=== PATIENT | female | born 1970 | race Caucasian/White ===

== ENCOUNTER 2016-06-26 15:17 | Outpatient (CLI) | payer OTHER | END 2016-06-26 15:18 | disposition home or self-care (01) | DX: K80.20 Calculus of gallbladder without cholecystitis without obstruction (principal) ==

== ENCOUNTER 2017-04-02 07:54 | Outpatient (CLI) | payer OTHER ==
--- NOTE | 2017-04-04 06:41 | Mammography Report ---
EXAM: DIGITAL BILATERAL SCREENING MAMMOGRAM 04/02/2017 CLINICAL INDICATION: A 47-year-old for screening. COMPARISON: 12/2014, 10/2013, 11/2011, 04/2010. TECHNIQUE: Routine CC and MLO projections were obtained of the breasts. FINDINGS: Parenchymal tissue within both breasts is heterogeneously dense, which may lower the sensitivity of mammography; however, there are no dominant masses, suspicious microcalcifications, or secondary signs of malignancy. In comparison to the previous studies, there are no significant changes. ASSESSMENT: NO MAMMOGRAPHIC EVIDENCE OF MALIGNANCY. NO SIGNIFICANT INTERVAL CHANGES. RECOMMENDATION: Screening mammography is recommended annually. BIRADS category 1 - negative. STANDARD QUALIFYING STATEMENTS 1. This examination was reviewed with the aid of Computed-Aided Detection (CAD). 2. A negative or benign imaging report should not delay biopsy if clinically suspicious findings are present. Consider surgical consultation if warranted. More than 5% of cancers are not identified by imaging. 3. Dense breasts may obscure an underlying neoplasm. Dictating Provider: Isacc Flores MD TD: 04/03/2017 21:13 MTDD
== END 2017-04-02 07:55 | disposition home or self-care (01) ==
LOC: DI 07:54
PROVIDERS: ATTEND Family Medicine
DX: Z12.31 Encounter for screening mammogram for malignant neoplasm of breast (principal)
CPT/HCPCS: 77067

== ENCOUNTER 2017-06-20 08:00 | Outpatient (CLI) | payer OTHER ==
[2017-06-20 13:11] LABS: BASOPHILS # (AUTO) 0.1 10^3/uL (0.0-0.1); BASOPHILS % (AUTO) 0.9 %; EOSINOPHILS # (AUTO) 0.2 10^3/uL (0.0-0.7); LYMPHOCYTES # (AUTO) 1.5 10^3/uL (1.5-3.5); LYMPHOCYTES % (AUTO) 23.6 %; MEAN CORPUSCULAR HEMOGLOBIN 29.3 pg (27.0-31.0); MEAN CORPUSCULAR HGB CONC 33.3 g/dL (32.0-36.0); MEAN CORPUSCULAR VOLUME 87.9 fL (81.0-99.0); MEAN PLATELET VOLUME 8.3 fL (7.9-10.8); MONOCYTES # (AUTO) 0.6 10^3/uL (0.0-1.0); MONOCYTES % (AUTO) 9.3 %; NEUTROPHILS # (AUTO) 3.9 10^3/uL (1.5-6.6); NEUTROPHILS % (AUTO) 62.2 %; PLT - PLATELET COUNT 270 10^3/uL (130-450); RED BLOOD COUNT 4.43 10^6/uL (4.20-5.40); WHITE BLOOD COUNT 6.2 x10^3/uL (4.8-10.8)
[2017-06-20 13:38] LABS: HB2 TOTAL 13.7 g/dL; HEMOGLOBIN A1C 0.44 g/dL; HEMOGLOBIN A1C % 5.1 % (4.6-6.2)
[2017-06-20 14:01] LABS: ALBUMIN 4.3 g/dL (3.2-5.5); ALBUMIN/GLOBULIN RATIO 1.8 (1.0-2.2); ALKALINE PHOSPHATASE 50 IU/L (42-121); ALT ALANINE AMINOTRANSFERASE 18 IU/L (10-60); AST ASPARTATE AMINOTRANSFERASE 19 IU/L (10-42); BILIRUBIN,TOTAL 0.6 mg/dL (0.2-1.0); BUN - BLOOD UREA NITROGEN 9 mg/dL (6-20); CALCIUM 9.1 mg/dL (8.5-10.3); CARBON DIOXIDE - CO2 22 mmol/L (21-32); CHLORIDE 106 mmol/L (101-111); CHOL/HDL RATIO 3.4 (<4.4); CHOLESTEROL 195 mg/dL; GFR - MDRD 59 (>89); GLUCOSE 89 mg/dL (70-100); HDL CHOLESTEROL 57 mg/dL; LDL CHOLESTEROL,CALCULATED 116 mg/dL; SODIUM 137 mmol/L (135-145); TOTAL PROTEIN 6.7 g/dL (6.7-8.2); VLDL CHOLESTEROL 22 mg/dL
== END 2017-06-20 08:01 | disposition home or self-care (01) ==
LOC: LAB.WCP 08:00
PROVIDERS: ATTEND Family Medicine
DX: Z00.00 Encounter for general adult medical examination without abnormal findings (principal); E78.5 Hyperlipidemia, unspecified; K76.89 Other specified diseases of liver; Z51.81 Encounter for therapeutic drug level monitoring; Z79.899 Other long term (current) drug therapy
CPT/HCPCS: 36415; 80053; 80061; 83036; 83721; 84443; 85025

== ENCOUNTER 2018-06-23 16:04 | Outpatient (CLI) | payer OTHER ==
--- NOTE | 2018-06-24 11:01 | Mammography Report ---
Reason: SCREENING MAMMO Procedure Date: 06/23/2018 Accession Number: [id number] / [id number] Procedure: MGN - Screening Mammo Dig Bilat CPT Code: FULL RESULT: EXAM: Screening Mammo Dig Bilat DATE: 06/23/2018 4:31 PM CLINICAL HISTORY: Routine screening. No reported personal or family history of breast cancer. TECHNIQUE: Bilateral CC and MLO views were obtained. COMPARISON: 04/10/2017 through 12/13/2011 FINDINGS: The breasts demonstrate heterogeneously dense fibroglandular parenchyma bilaterally. Bilateral breasts: There are no suspicious masses, calcifications or areas of distortion. IMPRESSION: Negative examination RECOMMENDATION: Routine annual screening unless otherwise clinically indicated. BI-RADS CATEGORY 1: Negative STANDARD QUALIFYING STATEMENTS: 1. This examination was reviewed with the aid of Computer-Aided Detection (CAD). 2. A negative or benign imaging report should not preclude biopsy if clinically suspicious findings are present. 3. Dense breasts may obscure an underlying neoplasm. 4. This examination was reviewed without the aid of 3D breast imaging (tomosynthesis).
== END 2018-06-23 16:05 | disposition home or self-care (01) ==
LOC: DI.N 16:04
DX: Z12.31 Encounter for screening mammogram for malignant neoplasm of breast (principal)
CPT/HCPCS: 77067

== ENCOUNTER 2018-11-16 08:00 | Outpatient (CLI) | payer OTHER ==
[2018-11-16 12:52] LABS: BASOPHILS % (AUTO) 0.4 %; EOSINOPHILS # (AUTO) 0.1 10^3/uL (0.0-0.7); EOSINOPHILS % (AUTO) 1.4 %; HGB - HEMOGLOBIN 12.3 g/dL (12.0-16.0); LYMPHOCYTES # (AUTO) 1.7 10^3/uL (1.5-3.5); LYMPHOCYTES % (AUTO) 20.2 %; MEAN CORPUSCULAR HEMOGLOBIN 29.8 pg (27.0-31.0); MEAN CORPUSCULAR HGB CONC 31.9 g/dL (32.0-36.0); MEAN CORPUSCULAR VOLUME 93.5 fL (81.0-99.0); MEAN PLATELET VOLUME 10.2 fL (7.9-10.8); MONOCYTES # (AUTO) 0.5 10^3/uL (0.0-1.0); MONOCYTES % (AUTO) 6.5 %; NEUTROPHILS # (AUTO) 5.9 10^3/uL (1.5-6.6); NEUTROPHILS % (AUTO) 71.3 %; PLT - PLATELET COUNT 281 10^3/uL (130-450); RED BLOOD COUNT 4.13 10^6/uL (4.20-5.40); RED CELL DISTRIBUTION WIDTH 12.6 % (12.0-15.0); WHITE BLOOD COUNT 8.3 x10^3/uL (4.8-10.8)
[2018-11-16 13:14] LABS: ALBUMIN 4.3 g/dL (3.2-5.5); ALBUMIN/GLOBULIN RATIO 1.7 (1.0-2.2); ALKALINE PHOSPHATASE 57 IU/L (42-121); ALT ALANINE AMINOTRANSFERASE 17 IU/L (10-60); AST ASPARTATE AMINOTRANSFERASE 21 IU/L (10-42); BILIRUBIN,TOTAL 0.6 mg/dL (0.2-1.0); BUN - BLOOD UREA NITROGEN 12 mg/dL (6-20); CALCIUM 9.3 mg/dL (8.5-10.3); CARBON DIOXIDE - CO2 25 mmol/L (21-32); CHLORIDE 104 mmol/L (101-111); CHOL/HDL RATIO 3.3 (<4.4); CHOLESTEROL 209 mg/dL; CREATININE 0.9 mg/dL (0.4-1.0); GFR - MDRD 67 (>89); GLUCOSE 94 mg/dL (70-100); HDL CHOLESTEROL 63 mg/dL; LDL CHOLESTEROL,CALCULATED 132 mg/dL; LDL/HDL RATIO 2.1 (<4.4); SODIUM 139 mmol/L (135-145); TOTAL PROTEIN 6.9 g/dL (6.7-8.2); VLDL CHOLESTEROL 14 mg/dL
[2018-11-16 13:18] LABS: HB2 TOTAL 13.5 g/dL; HEMOGLOBIN A1C 0.47 g/dL; HEMOGLOBIN A1C % 5.3 % (4.6-6.2)
[2018-11-16 14:20] LABS: PLATELET ESTIMATE, MANUAL NORMAL (130-450,000) (NORMAL); PLATELET MORPHOLOGY NORMAL APPEARANCE (NORMAL); RBC MORPHOLOGY (MULTIPLE) NORMAL APPEARANCE (NORMAL)
== END 2018-11-16 23:59 | disposition home or self-care (01) ==
LOC: LAB.WCP 08:00
PROVIDERS: ATTEND Family Medicine
DX: Z00.00 Encounter for general adult medical examination without abnormal findings (principal); K76.89 Other specified diseases of liver; E78.5 Hyperlipidemia, unspecified
CPT/HCPCS: 36415; 80053; 80061; 83036; 83721; 84443; 85025

== ENCOUNTER 2019-12-02 10:26 | Outpatient (CLI) | payer OTHER ==
[2019-12-02 17:55] LABS: BASOPHILS % (AUTO) 0.5 %; EOSINOPHILS # (AUTO) 0.1 10^3/uL (0.0-0.7); EOSINOPHILS % (AUTO) 0.9 %; HGB - HEMOGLOBIN 12.6 g/dL (12.0-16.0); LYMPHOCYTES # (AUTO) 1.8 10^3/uL (1.5-3.5); LYMPHOCYTES % (AUTO) 20.6 %; MEAN CORPUSCULAR HEMOGLOBIN 30.7 pg (27.0-31.0); MEAN CORPUSCULAR HGB CONC 32.3 g/dL (32.0-36.0); MEAN CORPUSCULAR VOLUME 94.9 fL (81.0-99.0); MONOCYTES # (AUTO) 0.5 10^3/uL (0.0-1.0); MONOCYTES % (AUTO) 6.2 %; NEUTROPHILS # (AUTO) 6.2 10^3/uL (1.5-6.6); NEUTROPHILS % (AUTO) 71.5 %; PLT - PLATELET COUNT 315 10^3/uL (130-450); RED BLOOD COUNT 4.11 10^6/uL (4.20-5.40); RED CELL DISTRIBUTION WIDTH 12.7 % (12.0-15.0); WHITE BLOOD COUNT 8.7 x10^3/uL (4.8-10.8)
[2019-12-02 18:33] LABS: ALBUMIN 4.2 g/dL (3.2-5.5); ALBUMIN/GLOBULIN RATIO 1.6 (1.0-2.2); ALKALINE PHOSPHATASE 61 IU/L (42-121); ALT ALANINE AMINOTRANSFERASE 17 IU/L (10-60); AST ASPARTATE AMINOTRANSFERASE 22 IU/L (10-42); BILIRUBIN,TOTAL 0.7 mg/dL (0.2-1.0); BUN - BLOOD UREA NITROGEN 12 mg/dL (6-20); CALCIUM 9.2 mg/dL (8.5-10.3); CARBON DIOXIDE - CO2 28 mmol/L (21-32); CHLORIDE 100 mmol/L (101-111); CHOL/HDL RATIO 3.1 (<4.4); CHOLESTEROL 205 mg/dL; GLUCOSE 76 mg/dL (70-100); HDL CHOLESTEROL 66 mg/dL; LDL CHOLESTEROL,CALCULATED 120 mg/dL; LDL/HDL RATIO 1.8 (<4.4); SODIUM 136 mmol/L (135-145); TOTAL PROTEIN 6.8 g/dL (6.7-8.2); VLDL CHOLESTEROL 19 mg/dL
== END 2019-12-02 23:59 | disposition home or self-care (01) ==
LOC: LAB.WCP 10:26
PROVIDERS: ATTEND Family Medicine
DX: Z00.00 Encounter for general adult medical examination without abnormal findings (principal)
CPT/HCPCS: 36415; 80053; 80061; 83721; 84443; 85025

== ENCOUNTER 2019-12-19 12:58 | Emergency (ER) | payer OTHER ==
[2019-12-19] MEDS ORDERED: ACYCLOVIR 200 MG CAPSULE PO STA (14:34)
[2019-12-19] MEDS ORDERED: predniSONE 20 MG TABLET PO STA (14:34)
[2019-12-19] MEDS ORDERED: HYDROcod/ACETAM 5/325 MG TABLET PO STA (14:34)
--- NOTE | 2019-12-19 14:38 | ED Physician Documentation ---
History of Present Illness - Stated complaint Stated Complaint: EAR PX/SWELLING/RASH - Chief complaint Chief Complaint: General - History obtained from History obtained from: Patient - Additonal information Additional information: Patient comes emergency department complaining of ear pain which she believes may be related to shingles. She states she has been noticing increasing pain on her scalp, her cheek, and her lower lip and chin area all on the right side of her face. She is also noticed some painful blisters on the right side of her tongue. Patient is never had shingles before. No fevers or chills. No myalgias. No recent exposures. Patient is not immunocompromise and is otherwise healthy. No other complaints at this time. Review of Systems Ten Systems: 10 systems reviewed and negative Constitutional: reports: Reviewed and negative Eyes: reports: Reviewed and negative Ears: reports: Reviewed and negative Nose: reports: Reviewed and negative Throat: reports: Reviewed and negative Cardiac: reports: Reviewed and negative Respiratory: reports: Reviewed and negative GI: reports: Reviewed and negative : reports: Reviewed and negative Skin: reports: Rash, Lesions Musculoskeletal: reports: Reviewed and negative Neurologic: reports: Reviewed and negative Psychiatric: reports: Reviewed and negative Endocrine: reports: Reviewed and negative Immunocompromised: reports: Reviewed and negative PD PAST MEDICAL HISTORY - Past Medical History Past Medical History: Yes Cardiovascular: None Respiratory: None Neuro: None Endocrine/Autoimmune: None GI: None DRUM TENDER: None : None HEENT: None Psych: None Musculoskeletal: None Derm: None - Past Surgical History Past Surgical History: Yes General: Cholecystectomy Ortho: Rotator cuff repair /DRUM TENDER: section - Present Medications Home Medications: Ambulatory Orders Medication Instructions Recorded Confirmed Clindamycin [Cleocin] 300 mg PO Q6H 7 Days capsule 08/20/14 Amoxicillin/Potassium Clav 1 each PO BID #14 tablet 07/07/15 [Augmentin 875-125 Tablet] Bcp 07/07/15 Fluconazole [Diflucan] 150 mg PO ONCE #1 tablet 07/07/15 Acyclovir [Zovirax] 800 mg PO 5XD 7 Days #35 tablet 12/19/19 predniSONE [Prednisone] 60 mg PO DAILY #10 tablet 12/19/19 predniSONE [Prednisone] 60 mg PO DAILY #15 tablet 12/19/19 - Allergies Allergies/Adverse Reactions: Allergies Allergy/AdvReac Type Severity Reaction Status Date / Time No Known Drug Allergies Allergy Verified 12/19/19 13:14 - Social History Does the pt smoke?: No Smoking Status: Never smoker Does the pt drink ETOH?: Yes Does the pt have substance abuse?: No - Immunizations Immunizations are current?: Yes Immunizations: TDAP >10years/unknown - POLST Patient has POLST: No PD ED PE NORMAL - Vitals Vital signs reviewed: Yes - General General: Alert and oriented X 3, No acute distress, Well developed/nourished - HEENT HEENT: Atraumatic, PERRL, EOMI, Ears normal (No TM redness or bulging. Questionable mild edema of external canal without distinct lesions at this time.), Moist mucous membranes, Other (Tiny vesicles noted on R tongue, face, and scalp. ) - Neck Neck: Supple, no meningeal sign, Other ( mild LAD R) - Respiratory Respiratory: No respiratory distress - Derm Derm: Normal color, Warm and dry, Other (vesicular rash of face and head, as above) - Extremities Extremities: No deformity - Neuro Neuro: Alert and oriented X 3 - Psych Psych: Normal mood, Normal affect Results - Vitals Vitals: Vital Signs - 24 hr 12/19/19 12/19/19 13:11 15:06 Temperature 36.6 C 37.2 C Heart Rate 70 76 Respiratory 16 15 Rate Blood Pressure 128/86 H 124/68 O2 Saturation 99 99 Oxygen O2 Source Room air PD MEDICAL DECISION MAKING - ED course Complexity details: considered differential, d/w patient ED course: Patient symptoms were indeed consistent with a zoster outbreak. I did start her on acyclovir, prednisone, and hydrocodone in the emergency department. We have discussed the timeline of the illness, and and timeline for follow-up. We discussed the usual indications for return. Departure - Departure Disposition: 01 Home, Self Care Clinical Impression: Shingles Qualifiers: Herpes zoster complications: without complications Qualified Code(s): B02.9 - Z jin without complications Condition: Stable Instructions: ED Shingles Prescriptions: predniSONE [Prednisone] 60 mg PO DAILY #10 tablet predniSONE [Prednisone] 60 mg PO DAILY #15 tablet Acyclovir [Zovirax] 800 mg PO 5XD 7 Days #35 tablet Discharge Date/Time: 12/19/19 15:07
[2019-12-19 15:07] VITALS: BP 124/68
== END 2019-12-19 15:07 | disposition home or self-care (01) ==
LOC: ED 12:58
DX: B02.9 Zoster without complications (principal)
CPT/HCPCS: 99283; 99284; A9270; J7512

== ENCOUNTER 2020-01-13 16:31 | Outpatient (CLI) | payer OTHER ==
[2020-01-13] MEDS ORDERED: IOVERSOL 320 100 ML VIAL IVP ONE ×2 (16:56→17:40)
--- NOTE | 2020-01-14 14:54 | CT Report ---
PROCEDURE: ABDOMEN W/WO INDICATIONS: LIVER NODULE, suspected to be fibronodular hyperplasia, with dedicated hepatic MRI perfo rmed at an outside institution without and with contrast. TECHNIQUE: Axial precontrast scanning through the abdomen was followed by arterial phase postcontrast enhancement and thereafter 3 separate additional delayed phases of contrast enhancement imaging were obtained. No oral contrast was utilized. COMPARISON: 06/26/2016 gallbladder ultrasound. Also, prior contrast-enhanced MR scanning of the liver 10/11/2016 was obtained and reviewed. FINDINGS: At the lung bases there are no lesions. Within the abdomen there are postsurgical changes of cholecys tectomy. The liver lesion previously identified and best visualized by MR scanning is partially visua lized by this examination, and its boundaries are best identified on the immediate arterial phase of contrast enhancement imaging, measuring up to approximately 4.3 cm transverse and 3.1 cm AP. It has a n overall craniocaudad length of 4.2 cm. The early arterial phase of contrast enhancement shows a minh tral linear "scar" within the enhancing tissue of the structure. This was also seen on prior MR scann ing. IMPRESSION: The right posterior hepatic segment enhancing liver lesion, segment 6, was best visualized by MRI per formed 10/11/2016 and the imaging characteristics remain consistent with fibronodular hyperplasia. The overall dimensions of the structure have diminished to a mild degree. No new lesion has developed el sewhere. Given the improved tissue margin visualization achieved by MR scanning if additional follow- up is clinically desired a contrast-enhanced MR study would be recommended over CT technique. By this examination, however, follow-up advanced imaging this structure does not appear necessary. Reviewed by: Heath Alan MD on 01/14/2020 2:53 PM PDT Approved by: Heath Alan MD on 01/14/2020 2:53 PM PDT Station ID: [id number]
== END 2020-01-13 16:32 | disposition home or self-care (01) ==
LOC: DI 16:31
PROVIDERS: ATTEND Physician Assistant Medical
DX: K76.89 Other specified diseases of liver (principal)
CPT/HCPCS: 74170; Q9967

== ENCOUNTER 2021-05-14 15:30 | Outpatient (CLI) | payer BC ==
--- NOTE | 2021-05-16 07:26 | Mammography Report ---
BILATERAL DIGITAL SCREENING MAMMOGRAM 3D/2D: 05/14/2021 CLINICAL: Routine screening. Comparison is made to exams dated: 06/23/2018 mammogram, 04/02/2017 mammogram, and 12/26/2014 mammogra m - [facility]. The tissue of both breasts is heterogeneously dense. This may lowe r the sensitivity of mammography. No significant masses, calcifications, or other findings are seen in either breast. There has been no significant interval change. IMPRESSION: NEGATIVE There is no mammographic evidence of malignancy. A 1 year screening mammogram is recommended. This exam was interpreted at Station ID: [id number]. NOTE: For mammograms, a report in lay terms will be sent to the patient. Approximately 15% of breast malignancies will not be visualized mammographically. In the management of a palpable breast mass, a negative mammogram must not discourage biopsy of a clinically suspicious lesion. Electronically Signed By: Oh Byers M.D. ar/penrad:05/15/2021 10:18:46 ACR BI-RADS Category 1: Negative 3341F PARENCHYMAL PATTERN: (D) - The breast(s) demonstrate(s) heterogeneously dense fibroglandular gibson rinaldi. BI-RADS CATEGORY: (1) - 1 RECOMMENDATION: (ANNUAL) - Recommend routine annual screening mammography. [id number] 1 year screening LATERALITY: (B)
== END 2021-05-14 15:31 | disposition home or self-care (01) ==
LOC: DI.N 15:30
DX: Z12.31 Encounter for screening mammogram for malignant neoplasm of breast (principal)

== ENCOUNTER 2021-12-23 14:06 | Emergency (ER) | payer BC ==
[2021-12-23 14:14] VITALS: BP 149/73
--- NOTE | 2021-12-23 15:08 | ED Physician Documentation ---
PD HPI UPPER EXT INJURY - Stated complaint Stated Complaint: CUT FINGER - Chief complaint Chief Complaint: Laceration - History obtained from History obtained from: Patient - History of Present Illness Location: Right, Finger (She cut the ulnar side base of the little finger on the edge of the jameson jar. Wound was still bleeding some. No weakness or numbness.) Type of injury: Laceration Where injury occurred: Home Timing - onset: Today Timing - details: Abrupt onset, Still present Worsened by: Moving (the wound opens with little finger movement.), Palpating Associated symptoms: No: Weakness, Numbness Review of Systems Neurologic: denies: Focal weakness, Numbness PD PAST MEDICAL HISTORY - Past Medical History Past Medical History: No Cardiovascular: None Respiratory: None Neuro: None Endocrine/Autoimmune: None GI: None POST MANAGER: None : None HEENT: None Psych: None Musculoskeletal: None Derm: None - Past Surgical History Past Surgical History: Yes General: Cholecystectomy Ortho: ACL reconstruction /POST MANAGER: section - Present Medications Home Medications: Ambulatory Orders Medication Instructions Recorded Confirmed Clindamycin [Cleocin] 300 mg PO Q6H 7 Days capsule 08/20/14 Amoxicillin/Potassium Clav 1 each PO BID #14 tablet 07/07/15 [Augmentin 875-125 Tablet] Bcp 07/07/15 Fluconazole [Diflucan] 150 mg PO ONCE #1 tablet 07/07/15 Acyclovir [Zovirax] 800 mg PO 5XD 7 Days #35 tablet 12/19/19 predniSONE [Prednisone] 60 mg PO DAILY #10 tablet 12/19/19 predniSONE [Prednisone] 60 mg PO DAILY #15 tablet 12/19/19 - Allergies Allergies/Adverse Reactions: Allergies Allergy/AdvReac Type Severity Reaction Status Date / Time No Known Drug Allergies Allergy Verified 12/23/21 14:14 - Social History Does the pt smoke?: No Smoking Status: Never smoker Does the pt drink ETOH?: Yes Does the pt have substance abuse?: No - Immunizations Immunizations are current?: No Immunizations: TDAP >10years/unknown - POLST Patient has POLST: No PD ED PE NORMAL - Vitals Vital signs reviewed: Yes - General General: Alert and oriented X 3, No acute distress, Well developed/nourished - Derm Derm: Normal color, Warm and dry Results - Vitals Vitals: Oxygen O2 Source Room air Procedures - Laceration (location) right little finger Length in cm: 1.5 Wound type: Linear, Into subcut fat Neurovascular status: Sensory intact, Motor intact, Vascular intact Tendon involvement: Tendon intact Anesthesia: Lidocaine 1% with epi Wound preparation: Irrigated copiously NS, Wound explored, To the base Skin layer closure: Nylon, Running, Size #-0 - enter number (4), Sutures - enter # (7) Other: Patient tolerated well, No complications, Neurovascular intact, Dressing applied, Tetanus UTD PD MEDICAL DECISION MAKING - ED course Complexity details: considered differential, d/w patient Departure - Departure Disposition: 01 Home, Self Care Clinical Impression: Laceration of little finger Qualifiers: Encounter type: initial encounter Damage to nail status: without damage Foreign body presence: without foreign body Laterality: right Qualified Code(s): S61.216A - Laceration without foreign body of right little finger without damage to nail, initial encounter Condition: Stable Record reviewed to determine appropriate education?: Yes Instructions: ED Laceration Hand Follow-Up: KRISTINA FARIAS MD [Primary Care Provider] - Comments: It is okay to wash and shower. Clean off the wound twice a day with soap and water, or peroxide and water. Apply some antibiotic ointment to it to keep it moist. Also to watch for signs of infection such as purulence, redness or increasing pain. Return to your primary care or the ER at the specified time for suture removal. Suture removal 8 to 10 days. Tylenol or ibuprofen if needed for pains. Discharge Date/Time: 12/23/21 15:31
== END 2021-12-23 15:31 | disposition home or self-care (01) ==
LOC: ED 14:06
DX: S61.216A Laceration without foreign body of right little finger without damage to nail, initial encounter (principal); W45.8XXA Other foreign body or object entering through skin, initial encounter
CPT/HCPCS: 12001; 99282

== ENCOUNTER 2022-06-12 15:47 | Outpatient (CLI) | payer BC ==
--- NOTE | 2022-06-13 16:59 | Mammography Report ---
BILATERAL DIGITAL SCREENING MAMMOGRAM 3D/2D: 06/12/2022 CLINICAL: Routine screening. Comparison is made to exams dated: 05/14/2021 mammogram, 06/23/2018 mammogram, 04/02/2017 mammogram, mammogram, 10/19/2013 mammogram, and 12/26/2011 mammogram - [facility]. Both breasts are heterogeneously dense, which may obscure small masses (category c / 51-75% glandular tissue). No significant masses, calcifications, or other findings are seen in either breast. There has been no significant interval change. IMPRESSION: NEGATIVE There is no mammographic evidence of malignancy. A 1 year screening mammogram is recommended. Based on the Tyrer Cuzick model (a risk assessment model) the patients lifetime risk is 12.8% and he r 10 year risk is 3.5%. According to the ACR, ACS, and NCCN guidelines, an annual breast MRI exam lisa ng with mammogram is recommended if the patients lifetime risk is 20% or greater. This exam was interpreted at Station ID: [id number]. NOTE: For mammograms, a report in lay terms will be sent to the patient. Approximately 15% of breast malignancies will not be visualized mammographically. In the management of a palpable breast mass, a negative mammogram must not discourage biopsy of a clinically suspicious lesion. Electronically Signed By: Bala valencia/[email or web address]:06/13/2022 08:48:35 letter sent: No_Letter ACR BI-RADS Category 1: Negative 3341F PARENCHYMAL PATTERN: (D) - The breast(s) demonstrate(s) heterogeneously dense fibroglandular gibson rinaldi. BI-RADS CATEGORY: (1) - 1 Mammogram [id number] 1 year screening LATERALITY: (B)
== END 2022-06-12 15:48 | disposition home or self-care (01) ==
LOC: DI.N 15:47
DX: Z12.31 Encounter for screening mammogram for malignant neoplasm of breast (principal)

== ENCOUNTER 2022-12-09 13:53 | Outpatient (CLI) | payer BC ==
--- NOTE | 2022-12-09 16:08 | MRI Report ---
PROCEDURE: ABDOMEN W/WO INDICATIONS: LIVER MASS CONTRAST: gadavist 7.6 TECHNIQUE: Coronal ultra fast SE, axial 2D spoiled GE in- and rom-xi-kexew; axial breath-hold T2 fast SE. Dynam ic axial ultra fast GE during the administration of contrast; post-contrast coronal ultra fast GE or 2D spoiled GE with fat saturation from the hepatic dome to the iliac crests. Optional diffusion weig hted imaging and ADC may be performed. COMPARISON: CT abdomen 01/13/2020, MR abdomen 10/11/2016 FINDINGS: Image quality: Excellent. Lung bases and heart: Unremarkable. Liver: Normal liver size and signal with generally smooth margin. There is a lobulated subcapsular ma ss in the inferior aspect of segment 6 causing capsular retraction laterally and demonstrating signal isointense to liver on T1 and T2 imaging. Postcontrast, the poorly defined lesion measures roughly 3 .4 x 2.6 cm on arterial images and demonstrates a hypoenhancing center. On subsequent delayed sequenc es, the mass continues to enhance, washing into the center, and follows blood pool intensity. Gallbladder and biliary tree: The gallbladder surgically absent. Biliary tree is nondilated. Spleen: No splenomegaly. Pancreas: Normal enhancement. No pancreatic ductal dilatation. Adrenals: No adrenal nodule. Kidneys and ureters: No hydronephrosis. No renal cystic lesion which requires follow up. No solid mas s. Bowel and peritoneum: No bowel distension. No pathologic free fluid. Lymph nodes: No central or retroperitoneal adenopathy. Vessels: No infrarenal aortic aneurysm. Bones: No aggressive osseous abnormality. Other: No significant ventral hernia. IMPRESSION: 1. Regression of segment 6 liver lesions since 2016. Capsular retraction has become more pronounced. Its enhancement characteristics are stable, more consistent with sclerosis/fibrosis and other signal characteristics remain consistent with focal nodular hyperplasia. 2. No new liver lesions. 3. Postcholecystectomy. Reviewed by: Kristen Yang MD on 12/09/2022 4:06 PM PDT Approved by: Kristen Yang MD on 12/09/2022 4:06 PM PDT Station ID: [id number]
== END 2022-12-09 13:54 | disposition home or self-care (01) ==
LOC: DI 13:53
PROVIDERS: ATTEND Family Medicine
DX: R16.0 Hepatomegaly, not elsewhere classified (principal); K76.89 Other specified diseases of liver; Z90.49 Acquired absence of other specified parts of digestive tract
CPT/HCPCS: 74183; A9585

== ENCOUNTER 2022-12-18 18:19 | Outpatient (CLI) | payer BC ==
--- NOTE | 2022-12-19 12:18 | XRAY Report ---
PROCEDURE: Foot 2 View LT INDICATIONS: PAIN IN LEFT FOOT TECHNIQUE: 2 views of the foot were acquired. COMPARISON: None. FINDINGS: Bones: No fractures or dislocations. No suspicious bony lesions. Mild hallux valgus alignment and medial bunion. Mild first MTP and diffuse interphalangeal joint space narrowing with minimal periart icular osteophyte formation. Small plantar calcaneal enthesophyte. Soft tissues: No suspicious soft tissue calcifications or masses. IMPRESSION: No fracture or dislocation. If pain persists, consider cross-sectional imaging such as CT or MRI. Rep eat plain film also could be performed. Reviewed by: JING Ramirez on 12/19/2022 12:17 PM PDT Approved by: Nikki Emerson MD on 12/19/2022 12:17 PM PDT Station ID: [id number]
== END 2022-12-18 18:20 | disposition home or self-care (01) ==
LOC: DI 18:19
PROVIDERS: ATTEND Nurse Practitioner
DX: M79.672 Pain in left foot (principal)